=== PATIENT | female | born 1990 | race Caucasian/White ===

== ENCOUNTER 2018-01-31 01:18 | Emergency (ER) | payer OTHER ==
[~2018-01-31] VITALS: Ht 170.2 cm; Wt 132.1 kg
[~2018-01-31 01:18] MED LIST: BP PILL; GABAPENTIN300 MG PO; HYCODAN SYRUP480 ML PO; PERCOCET 5/31 TABLET PO; PROTONIX40 MG PO; TYLENOL WITH C1 EACH PO; ZOFRAN4 MG PO
[2018-01-31 02:00] LABS: HEMATOCRIT 41.5 % (36.0-46.0); HEMOGLOBIN 14.2 G/DL (11.9-15.5); MCH 30.9 PG (29.0-34.0); MCHC 34.2 G/DL (30.0-36.0); MCV 90.4 FL (83-99); PLATELET COUNT 272 K/uL (156-360); RBC DIS.WIDTH-CV 12.4 % (11.8-14.6); RBC DIS.WIDTH-SD 40.5 % (39-53); RED BLOOD COUNT 4.59 M/uL (3.80-5.20); WHITE BLOOD COUNT 14.2 K/uL (4.1-10.2)
[2018-01-31 02:10] LABS: CHLORIDE 102 mEq/L (99-109); POTASSIUM 3.9 mEq/L (3.7-5.4); SODIUM 139 mEq/L (136-147)
[2018-01-31 02:11] LABS: GLUCOSE 128 mg/dL (70-99)
[2018-01-31 02:15] LABS: CREATININE 0.8 mg/dL (0.6-1.3); GFR ESTIMATE (CALCULATED) > 59 mL/min/
[2018-01-31 02:16] LABS: UREA NITROGEN (BUN) 15 mg/dL (9-23)
[2018-01-31 02:22] LABS: TROP-I INTERPRETATION NEGATIVE; TROPONIN-I < 0.01 ng/mL (0.0-0.30)
[2018-01-31 04:32] LABS: ALBUMIN 4.5 g/dL (3.2-4.8)
[2018-01-31 04:33] LABS: MAGNESIUM 2.1 mg/dL (1.3-2.7)
[2018-01-31 04:35] LABS: TOTAL PROTEIN 7.2 g/dL (6.4-8.3)
[2018-01-31 04:36] LABS: TOTAL BILIRUBIN 0.3 mg/dL (0.0-1.0)
[2018-01-31 04:37] LABS: ALKALINE PHOSPHATASE 63 IU/L (3-129)
[2018-01-31 04:38] LABS: PHOSPHORUS 3.5 mg/dL (2.5-4.9)
[2018-01-31 04:40] LABS: AST (GOT) 10 IU/L (2-34); DIRECT BILIRUBIN 0.1 mg/dL (0.0-0.3)
[2018-01-31 04:41] LABS: ALT (GPT) 30 IU/L (3-49); LIPASE 15 U/L (1.0-51.0)
[2018-01-31 05:11] LABS: TROP-I INTERPRETATION NEGATIVE; TROPONIN-I < 0.01 ng/mL (0.0-0.30)
[2018-01-31 05:24] LABS: APPEARANCE CLEAR ((CLEAR)); BILIRUBIN NEGATIVE; BLOOD SMALL; COLOR STRAW ((YELLOW)); GLUCOSE (STRIP) NEGATIVE; KETONES NEGATIVE; LEUKOCYTES NEGATIVE; NITRITE NEGATIVE; PROTEIN (STRIP) NEGATIVE; SPECIFIC GRAVITY 1.008 (1.000-1.030); UROBILINOGEN 0.2 MG/DL (0.2-1.0)
[2018-01-31 05:25] LABS: BACTERIA RARE /HPF; EPITHELIAL CELLS RARE /HPF; MUCUS NONE SEEN /LPF; RED BLOOD CELLS 0-5 /HPF (0-5); UCUL ADDED? NO; WHITE BLOOD CELLS 0-5 /HPF (0-5)
[2018-01-31] MEDS ORDERED: PROVENTIL HFA6.7 GM IH (05:47)
[2018-01-31] MEDS ORDERED: ANTIVERT25 MG PO (05:50)
[2018-01-31 06:23] VITALS: BP 141/83
[2018-01-31 08:20] LABS: THYROTROPIN (TSH) 3.7 MIU/L (0.4-5.5)
== END 2018-01-31 06:25 | disposition home or self-care (01) ==
LOC: EME 01:18
PROVIDERS: Emergency Medicine
DX: R07.89 Other chest pain (principal); E86.0 Dehydration; R42 Dizziness and giddiness; F41.9 Anxiety disorder, unspecified; J45.909 Unspecified asthma, uncomplicated; F17.200 Nicotine dependence, unspecified, uncomplicated; Z90.49 Acquired absence of other specified parts of digestive tract; Z88.2 Allergy status to sulfonamides
CPT/HCPCS: 71046; 80048; 80076; 81003; 83605; 83690; 83735; 84100; 84443; 84484; 85027; 93005; 99281; 99284; J7030